=== PATIENT | male | born 1980 | race Caucasian/White ===

== ENCOUNTER 2016-12-16 17:31 | Inpatient (IN) | payer OTHER ==
[~2016-12-16] VITALS: Ht 182.9 cm; Wt 81.6 kg
--- NOTE | ~2016-12-16 | EKG ---
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
[~2016-12-16 17:31] MED LIST: ALPRAZOLAM; BACTRIM DS TAB1 EACH PO; CIPROFLOXACIN500 M1 PO; DESYREL150 MG PO; FLOMAX0.4 MG PO; HYDROXYZINE HCL25 M2 PO; LITHATE20 MG PO; NORCO 5-325 TA1 EACH PO; VICODIN; ZYPREXA5 MG PO
[2016-12-16 17:35] VITALS: BP 129/94
[2016-12-16 18:03] LABS: HEMATOCRIT 56.2 % (42.0-52.0); HEMOGLOBIN 19.4 gm/dL (14.0-18.0); MCH 28.4 pg (26.0-34.0); MCHC 34.5 g/dL (28.0-37.0); MCV 82.3 fL (80.0-100.0); PLATELET COUNT 342 thou/uL (150-400); RBC 6.82 mil/uL (4.50-6.00); WBC 18.6 thou/uL (4.0-11.0)
[2016-12-16 18:04] LABS: MANUAL DIFF YES
[2016-12-16 18:08] LABS: CALCIUM 9.5 mg/dL (8.5-10.1); CREATININE 0.8 mg/dL (0.7-1.3); POTASSIUM 4.2 mmol/L (3.5-5.1)
[2016-12-16 18:14] LABS: DIRECT BILIRUBIN 0.2 mg/dL (<0.1-0.3); TOTAL BILIRUBIN 1.3 mg/dL (<0.1-1.0); TOTAL PROTEIN 8.8 g/dL (6.4-8.2)
[2016-12-16 18:33] LABS: TOTAL CELL COUNT 100
[2016-12-16 18:34] LABS: ABSOLUTE NEUTROPHILS 15.4 thou/uL (1.4-8.2)
[2016-12-16] MEDS ORDERED: ZYPREXA5 MG PO (19:17)
[2016-12-16] MEDS ORDERED: DEPAKOTE ER500 MG PO (19:17)
[2016-12-17 03:52] VITALS: BP 108/72
[2016-12-17 05:04] LABS: HEMATOCRIT 46.2 % (42.0-52.0); MCH 28.1 pg (26.0-34.0); MCHC 33.8 g/dL (28.0-37.0); MCV 83.3 fL (80.0-100.0); RBC 5.55 mil/uL (4.50-6.00); RDW 14.1 % (10.5-14.5)
[2016-12-17 05:05] LABS: HEMOGLOBIN 15.6 gm/dL (14.0-18.0)
[2016-12-17 05:20] LABS: CALCIUM 8.2 mg/dL (8.5-10.1); CREATININE 0.6 mg/dL (0.7-1.3); POTASSIUM 3.6 mmol/L (3.5-5.1); TOTAL PROTEIN 6.8 g/dL (6.4-8.2)
[2016-12-17 15:50] VITALS: BP 120/67
[2016-12-17 19:24] VITALS: BP 100/68
[2016-12-18 04:26] VITALS: BP 98/68
[2016-12-18 05:32] LABS: ABSOLUTE NEUTROPHILS 4.4 thou/uL (1.4-8.2); BASOPHILS 0.4 % (0.0-2.0); EOSINOPHILS 2.9 % (0.0-3.0); HEMATOCRIT 42.6 % (42.0-52.0); HEMOGLOBIN 14.5 gm/dL (14.0-18.0); LYMPHOCYTES 39.1 % (24.0-44.0); MCH 28.3 pg (26.0-34.0); MCV 83.1 fL (80.0-100.0); MONOCYTES 6.4 % (1.0-8.0); PLATELET COUNT 289 thou/uL (150-400); POLYS 51.2 % (36.0-66.0); RBC 5.12 mil/uL (4.50-6.00); WBC 8.6 thou/uL (4.0-11.0)
[2016-12-18 05:35] LABS: MANUAL DIFF NO
[2016-12-18 05:42] LABS: CALCIUM 8.4 mg/dL (8.5-10.1); CREATININE 0.7 mg/dL (0.7-1.3); POTASSIUM 4.2 mmol/L (3.5-5.1)
[2016-12-18 11:09] VITALS: BP 103/57
[2016-12-18 11:52] VITALS: BP 122/64
[2016-12-18 15:31] VITALS: BP 106/64
[2016-12-18 21:00] VITALS: BP 108/68
[2016-12-19 04:12] VITALS: BP 147/109
[2016-12-19 07:47] VITALS: BP 144/100
[2016-12-19 09:29] LABS: ABSOLUTE NEUTROPHILS 6.9 thou/uL (1.4-8.2); BASOPHILS 0.5 % (0.0-2.0); EOSINOPHILS 1.9 % (0.0-3.0); HEMATOCRIT 42.8 % (42.0-52.0); HEMOGLOBIN 14.9 gm/dL (14.0-18.0); LYMPHOCYTES 24.6 % (24.0-44.0); MCH 28.7 pg (26.0-34.0); MCHC 34.8 g/dL (28.0-37.0); MCV 82.5 fL (80.0-100.0); MONOCYTES 6.2 % (1.0-8.0); PLATELET COUNT 309 thou/uL (150-400); POLYS 66.8 % (36.0-66.0); RBC 5.18 mil/uL (4.50-6.00); RDW 13.7 % (10.5-14.5); WBC 10.3 thou/uL (4.0-11.0)
[2016-12-19 09:35] LABS: MANUAL DIFF NO
[2016-12-19 09:45] LABS: ALBUMIN 3.4 g/dL (3.4-5.0); CALCIUM 8.7 mg/dL (8.5-10.1); CREATININE 0.8 mg/dL (0.7-1.3); POTASSIUM 3.7 mmol/L (3.5-5.1); TOTAL BILIRUBIN 0.4 mg/dL (<0.1-1.0); TOTAL PROTEIN 7.1 g/dL (6.4-8.2)
[2016-12-19 14:07] VITALS: BP 144/100
[2016-12-19] MEDS ORDERED: MIRALAX17 GM PO (14:07)
== END 2016-12-19 14:37 | disposition home or self-care (01) | DRG 390 ==
LOC: ER 17:31 → EROBS 19:54 → 4N 19:54 → 3N 12-18 19:56 → ENTRNSPT 12-19 14:22 → EDTRNSPTSTS 12-19 14:33 → 3N 12-19 14:37
PROVIDERS: Family Medicine; Nurse Practitioner; Nurse Practitioner Family
DX: K56.7 Ileus, unspecified (principal); F31.9 Bipolar disorder, unspecified; F90.9 Attention-deficit hyperactivity disorder, unspecified type; F20.9 Schizophrenia, unspecified; F17.210 Nicotine dependence, cigarettes, uncomplicated; R56.9 Unspecified convulsions; Z79.899 Other long term (current) drug therapy; Z90.49 Acquired absence of other specified parts of digestive tract
CPT/HCPCS: 10091; 10795

== ENCOUNTER 2016-12-24 20:31 | Inpatient (IN) | payer OTHER ==
[~2016-12-24] VITALS: Ht 180.3 cm; Wt 80.2 kg
--- NOTE | ~2016-12-24 | P ---
[facility] [place] [address] PROCEDURE REPORT Name: SAMIR GALINDO Room #: 448-P [facility] IN .R.#: [id number] Admission: 12/24/16 Attend Phys: Girish Ramon MD Discharge: 12/28/16 Date of : 80 Report #: [id number] THIS REPORT FOR: //name// CC: RINA physician/PCP Girish Ramon INPATIENT COLONOSCOPY REPORT BRIEF HISTORY: The patient is a 36-year-old male with recurrent abdominal pain and bouts of diarrhea. PREOPERATIVE DIAGNOSES: Abdominal pain and diarrhea. POSTOPERATIVE DIAGNOSES: Incomplete colonoscopy secondary to inadequate prep. MEDICATIONS: Deep sedation with propofol per anesthesia. SPECIMEN: None. ESTIMATED BLOOD LOSS: None. PROCEDURE: Aborted colonoscopy secondary to inadequate prep. FINDINGS: Prior to propofol sedation, procedure of colonoscopy discussed with the patient as well as potential risks and its complications. He indicates he understands and desires to proceed. DESCRIPTION OF PROCEDURE: With the patient in left lateral decubitus position, digital examination was completed which revealed no abnormalities. Subsequently, the Xecced video colonoscope was introduced into the rectum, advanced under direct vision. As we advanced the scope into the proximal rectum solid stool was encountered. We work around the solid stool, but unfortunately all the mucosa was coated with a thick layer of liquidy stool and large pieces of solid stools were encountered. It was felt that the prep was inadequate. We cannot accomplish a good exam with inadequate prep. Therefore, the scope was withdrawn. The patient tolerated the procedure well. DISPOSITION: The patient with above-mentioned symptoms. Unable to complete colonoscopy due to inadequate prep. We will continue to prep the patient and try again tomorrow. By: [id number] Roosevelt London MD /nt
--- NOTE | ~2016-12-24 | HC ---
[facility] [place] [address] CONSULTATION Name: SAMIR GALINDO JR Room #: 215-P ADM IN M.R.#: [id number] Admission: 12/24/16 Attend Phys: Girish Ramon MD Discharge: Date of : 80 Report #: [id number] THIS REPORT FOR: //name// CC: RINA physician/PCP Girish Ramon DATE OF SERVICE: 12/24/2016 REFERRING PROVIDER: Girish Ramon M.D. REASON FOR CONSULTATION: Abdominal pain. HISTORY OF PRESENT ILLNESS: The patient is a 36-year-old male seen in the Emergency Room with complaints of abdominal pain, vomiting, chills and nausea. The patient also complains of his breath smelling like rotten eggs when belching. He states that he was admitted for similar symptoms slightly greater than a week ago with placement of an NG tube and a diagnosis of a partial bowel obstruction. The patient does state he cannot remember where that admission took place, however. Nonetheless, the patient states he was feeling better and was discharged home, and now his pain has returned in a severe fashion and presents for evaluation. Workup just completed in the Emergency Room in the form of laboratories and a CT scan of the abdomen and pelvis were obtained. The patient's labs showed a mild leukocytosis with a white blood cell count of 14.[address] scan showed dilated fluid-filled loops of jejunum and ileum with mild thickening concerning for infectious enteritis or inflammatory bowel disease. As such, the patient is being admitted by the hospitalist service and I am asked to evaluate from a surgical standpoint. PAST MEDICAL HISTORY: Chronic kidney disease stage 1, hypokalemia, intermittent small bowel obstructions, prior kidney stones, abdominal pain, nausea and vomiting, prior appendectomy and cholecystectomy, bipolar disorder. HOME MEDICATIONS: Depakote, trazodone and Zyprexa. ALLERGIES: No known drug allergies. FAMILY HISTORY: Reviewed and noncontributory. SOCIAL HISTORY: The patient smokes 1 pack of cigarettes daily and has done so for several years, also uses marijuana daily. States he does not drink alcohol. REVIEW OF SYSTEMS: GENERAL: The patient denies nocturnal fevers or chills. HEENT: No change in vision, change in hearing. NECK: No swelling or difficulty swallowing. HEART: No chest pain, palpitations. [address] [address] CONSULTATION Name: SAMIR GALINDO Room #: 215-P [facility] IN [facility].#: [id number] Admission: 12/24/16 Attend Phys: Girish Ramon MD Discharge: Date of : 80 Report #: [id number] LUNGS: No cough or shortness of breath. ABDOMEN: Abdominal pain, nausea, vomiting. GENITOURINARY: No dysuria or hematuria. ENDOCRINE: No polyuria, polydipsia. HEMATOLOGIC: No history of bleeding or easy bruising. EXTREMITIES: No history of weakness or limited range of motion. NEUROLOGIC: No history of syncope or near syncopal episodes. SKIN AND INTEGUMENT: No history of abnormal lesions or moles. PSYCHIATRIC: Positive history of bipolar disorder. SKIN AND INTEGUMENT: No history of abnormal lesions or moles. LABORATORY AND X-RAY DATA: CBC shows white blood cell count of 14.5 thousand, hemoglobin 16.1, platelets 293,000. Creatinine 0.7. Liver function enzymes are normal. Lipase is normal. Urinalysis is negative. Three-view the abdomen shows dilated small bowel loops. CT scan of the abdomen and pelvis as per HPI shows multiple dilated fluid-filled loops of jejunum and ileum with mild wall thickening concerning for nonspecific infectious enteritis versus inflammatory bowel disease such as possible Crohn's. ASSESSMENT AND PLAN: A 36-year-old male with abdominal pain, nausea and vomiting and a workup consistent with either infectious enteritis, peptic ulcer disease or inflammatory bowel disease. At this time, the patient has been admitted by the hospitalist service and we will continue IV fluid rehydration with n.p.o. status at this time. I would like gastroenterology to evaluate as it may be necessary to perform either an EGD or colonoscopy to further identify the etiology of his symptoms. At this time, I see no indication for an emergent surgical intervention. I sincerely appreciate this consult. I will follow closely and leave any further recommendations in the patient's chart as appropriate. <ELECTRONICALLY SIGNED> By: Geraldine James MD, FACS 12/26/16 0914 1523 2305 Geraldine James MD, FACS /nt
--- NOTE | ~2016-12-24 | P ---
[facility] [place] [address] PROCEDURE REPORT Name: SAMIR GALINDO JR Room #: 448-P ADM IN M.R.#: [id number] Admission: 12/24/16 Attend Phys: Girish Ramon MD Discharge: Date of : 80 Report #: [id number] THIS REPORT FOR: //name// CC: Renetta Caldera DO [facility] physician/PCP Otis Peoples DO Girish James MD DATE OF SERVICE: 12/26/2016 PATIENT OF: Girish Ramon M.D. INDICATION FOR PROCEDURE: This patient has been having abdominal pain, nausea, vomiting and diarrhea off and on for the last 3 years. His abdominal x-ray showed dilation of multiple small bowel loops with air-fluid levels suggesting an ileus or possibly a bowel obstruction. EGD is being performed today to evaluate the nausea and vomiting and epigastric pain further. DESCRIPTION OF PROCEDURE: Informed consent for this procedure was obtained prior to the administration of any medication. The risks of the procedure, which include bleeding, perforation, infection, complications of sedation and the possibility I could miss something have been explained to the patient, and he has indicated his consent by signing. Propofol was slowly titrated before and during this procedure for patient comfort by the Anesthesia service. The Visualtisingn upper videoscope was introduced through the upper esophageal sphincter and advanced under direct visualization to the descending duodenum. Findings are noted on withdrawal of the scope. The duodenal mucosa appears normal throughout its entirety. There is some retained solid food in the duodenal bulb. Pylorus, normal mucosa. Antrum, there is some mild erythema of the antrum noted. Biopsies are obtained x 2 for histopathology. Body, normal mucosa. Cardia and fundus, normal mucosa. Retroflexed view did not reveal any further abnormalities. Scope was withdrawn to the esophagus. The Z-line is appropriately located but is quite jagged. There are some ectopic mucosal elements extending above the Z line, and there are some islands of ectopic-appearing mucosa present above the Z line as well. Biopsies were obtained x 3 for histopathology from these little points of ectopic mucosa. Good hemostasis was noted after all of the biopsies. The esophagus proximal to the ectopic-appearing mucosa appears normal throughout its entirety. The scope was withdrawn. The patient went to the recovery area in stable condition. He tolerated the procedure well. IMPRESSION: 1. Retained food in the stomach and the duodenal bulb. 2. Normal-appearing duodenum, biopsies from the second portion of the duodenum [address] [address] PROCEDURE REPORT Name: SAMIR GALINDO Room #: 448-P [facility] IN .R.#: [id number] Admission: 12/24/16 Attend Phys: Girish Ramon MD Discharge: Date of : 80 Report #: [id number] were obtained to rule out celiac sprue. 3. Mild antral erythema. 4. 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 Biopsies pending. These tongues of ectopic mucosa are just millimeters thick, less than 5 mm thick, and one is quite long approximately 3 cm in length. The islands of ectopic mucosa are trivial, only millimeters in size. Biopsies are pending. RECOMMENDATIONS: 1. To await the biopsy results. Consider gastric emptying study with retained solid food present in the duodenal bulb and the stomach. 2. Continue proton pump inhibitors. 3. Repeat acute abdominal series in the morning. Surgery is already following this patient for a small-bowel obstruction. Thank you very much once again for allowing me to participate in his care. <ELECTRONICALLY SIGNED> By: Renetta Caldera DO 12/27/16 1742 1436 0714 Renetta Caldera DO /nt
--- NOTE | ~2016-12-24 | S ---
[facility] [place] [address] SURGICAL PATH RPT PROCEDURE Name: SAMIR GALINDO JR Room #: 448-P ADM IN M.R.#: [id number] Admission: 12/24/16 Date of : 80 Discharge: Report #: [id number] Path Case #: [id number] PATHOLOGY REPORT COLLECTION DATE: 12/26/2016 RECEIVED DATE: 12/27/2016 SUBMITTING PHYS: Dr. Renetta Caldera OTHER PHYS: Dr. Girish Montez SPECIMEN(S) RECEIVED: A.Bx of small bowel B.Bx of gastric C.Bx of distal esophagus * * * * * * * * * * * * FINAL DIAGNOSIS: A. Small bowel, biopsy: - Unremarkable duodenal mucosa. B. Stomach, biopsy: - Mild chronic inactive gastritis. - An H. pylori immunostain is negative (Block B1; appropriately reactive control). C. Esophagus, distal, biopsy: - Squamocolumnar junctional mucosa, chronically inflamed, focal acute inflammation. - Negative for intestinal metaplasia. PATHOLOGIST: Tani Paz M.D. REPORT ELECTRONICALLY SIGNED BY: Tani Paz M.D. DATE/TIME: 12/28/2016 13:20 * * * * * * * * * * * * GROSS PATHOLOGY: A. Received in formalin labeled "Samir Shonna Giordano, BX of small bowel r/o celiac," are 2 segments of cadena soft tissue measuring 0.7 x 0.3 x 0.3 cm in aggregate dimensions and ranging from 0.3 to 0.4 cm in maximum dimension. The specimen is submitted entirely in cassette A1. B. Received in formalin labeled "Samir Galindo JEFFREY Giordano of gastric," are 3 segments of cadena soft tissue measuring 1.4 x 0.4 x 0.3 cm in aggregate dimensions and ranging from 0.2 to 0.5 cm in maximum dimension. The specimen is submitted entirely in cassette B1. C. Received in formalin labeled "Samir Ramirezangus Giordano BX of distal esophagus r/o Motta's," are 2 segments of cadena soft tissue measuring 0.9 x 0.4 x 0.3 cm in aggregate dimensions and ranging from 0.4 to 0.5 cm in maximum dimension. The specimen is submitted entirely in [address] [place] [address] SURGICAL PATH RPT PROCEDURE Name: SAMIR GALINDO Room #: 448-P [facility] IN .R.#: [id number] Admission: 12/24/16 Date of : 80 Discharge: Report #: [id number] Path Case #: [id number] cassette C1. (TSD; 12/27/2016) CLINICAL HISTORY: Abdominal pain INITIAL CPT CODE(S): A; 96743 B; 72476, 06662 C; 47791 Professional services performed by [facility] at [facility] [address] [place] [address] Technical services performed by [facility] at [address] [place] [address], [address], [place] [address]. [facility] [address] [place] [address] PHONE: [phone] DIRECTOR: Jermaine Allred M.D. * * * END OF REPORT * * *
[~2016-12-24 20:31] MED LIST changes: +DEPAKOTE ER500 MG PO; +MIRALAX17 GM PO
[2016-12-24 20:37] VITALS: BP 108/83
[2016-12-24] MEDS ORDERED: DEPAKOTE 250MG250 M1 PO (20:41)
[2016-12-24] MEDS ORDERED: ZYPREXA5 MG PO (20:42)
[2016-12-24] MEDS ORDERED: TRAZODONE 150150 M1 PO (20:42)
[2016-12-24 21:43] LABS: ABSOLUTE NEUTROPHILS 10.4 thou/uL (1.4-8.2); BASOPHILS 0.6 % (0.0-2.0); EOSINOPHILS 4.3 % (0.0-3.0); HEMATOCRIT 47.7 % (42.0-52.0); HEMOGLOBIN 16.1 gm/dL (14.0-18.0); LYMPHOCYTES 18.4 % (24.0-44.0); MCH 28.3 pg (26.0-34.0); MCHC 33.9 g/dL (28.0-37.0); MCV 83.6 fL (80.0-100.0); MONOCYTES 5.1 % (1.0-8.0); PLATELET COUNT 293 thou/uL (150-400); POLYS 71.6 % (36.0-66.0); RDW 14.4 % (10.5-14.5); WBC 14.5 thou/uL (4.0-11.0)
[2016-12-24 21:44] LABS: MANUAL DIFF NO
[2016-12-24 21:52] LABS: CALCIUM 8.5 mg/dL (8.5-10.1); CREATININE 0.7 mg/dL (0.7-1.3); POTASSIUM 3.9 mmol/L (3.5-5.1)
[2016-12-24 21:59] LABS: ALBUMIN 3.6 g/dL (3.4-5.0); TOTAL BILIRUBIN 0.5 mg/dL (<0.1-1.0); TOTAL PROTEIN 7.1 g/dL (6.4-8.2)
[2016-12-24 23:08] LABS: URINE BILIRUBIN NEGATIVE (Negative); URINE BLOOD NEGATIVE (Negative); URINE COLOR YELLOW; URINE GLUCOSE-RANDOM* NEGATIVE (Negative); URINE KETONES NEGATIVE (Negative); URINE LEUKOCYTES-REFLEX NEGATIVE (Negative); URINE PROTEIN (DIPSTICK) NEGATIVE (Negative); URINE UROBILINOGEN 0.2 E.U./dl (0.2-1.0)
[2016-12-24 23:59] VITALS: BP 111/62
[2016-12-25 00:09] VITALS: BP 124/77
[2016-12-25 03:50] VITALS: BP 124/74
[2016-12-25 07:30] VITALS: BP 97/57
[2016-12-25 11:38] VITALS: BP 108/51
[2016-12-25 15:22] VITALS: BP 97/59
[2016-12-25 20:08] VITALS: BP 121/87
[2016-12-26 03:49] VITALS: BP 90/56
[2016-12-26 04:16] LABS: HEMATOCRIT 40.9 % (42.0-52.0); MCHC 33.3 g/dL (28.0-37.0); MCV 83.9 fL (80.0-100.0); RBC 4.87 mil/uL (4.50-6.00); WBC 7.4 thou/uL (4.0-11.0)
[2016-12-26 04:18] LABS: HEMOGLOBIN 13.6 gm/dL (14.0-18.0)
[2016-12-26 04:31] LABS: CREATININE 0.6 mg/dL (0.7-1.3); POTASSIUM 3.8 mmol/L (3.5-5.1)
[2016-12-26 11:42] VITALS: BP 99/66
[2016-12-26 15:38] VITALS: BP 97/65
[2016-12-26 19:35] VITALS: BP 117/76
[2016-12-27 03:42] LABS: HEMATOCRIT 40.3 % (42.0-52.0); HEMOGLOBIN 13.5 gm/dL (14.0-18.0); MCH 28.2 pg (26.0-34.0); MCHC 33.6 g/dL (28.0-37.0); RBC 4.8 mil/uL (4.50-6.00); WBC 9.4 thou/uL (4.0-11.0)
[2016-12-27 03:48] LABS: CALCIUM 8.2 mg/dL (8.5-10.1); CREATININE 0.7 mg/dL (0.7-1.3); POTASSIUM 3.3 mmol/L (3.5-5.1)
[2016-12-27 03:52] VITALS: BP 105/60
[2016-12-27 08:15] VITALS: BP 113/79
[2016-12-27 11:24] VITALS: BP 139/96
[2016-12-27 15:33] VITALS: BP 144/90
[2016-12-27 20:23] VITALS: BP 149/96
[2016-12-28 04:44] VITALS: BP 130/89
[2016-12-28 04:57] LABS: HEMATOCRIT 41.5 % (42.0-52.0); MCH 28.1 pg (26.0-34.0); MCHC 33.7 g/dL (28.0-37.0); MCV 83.2 fL (80.0-100.0); RBC 4.99 mil/uL (4.50-6.00); RDW 14.1 % (10.5-14.5); WBC 9.4 thou/uL (4.0-11.0)
[2016-12-28 05:09] LABS: CALCIUM 8.5 mg/dL (8.5-10.1); CREATININE 0.7 mg/dL (0.7-1.3); POTASSIUM 3.9 mmol/L (3.5-5.1)
[2016-12-28 07:56] VITALS: BP 145/104
[2016-12-28] MEDS ORDERED: REGLAN 5 MG TAB5 MG PO (16:06)
[2016-12-28] MEDS ORDERED: PERCOCET PO (16:06)
[2016-12-28 16:18] VITALS: BP 145/104
[2016-12-28 17:49] VITALS: BP 145/104
== END 2016-12-28 17:50 | disposition home or self-care (01) | DRG 392 ==
LOC: ER 20:31 → 2N 23:42 → EROBS 23:42 → 2N 23:42 → 4S 12-27 11:21
PROVIDERS: Emergency Medicine; Hospitalist
DX: K31.84 Gastroparesis (principal); K56.60 Unspecified intestinal obstruction; K56.7 Ileus, unspecified; E87.6 Hypokalemia; F17.210 Nicotine dependence, cigarettes, uncomplicated; N18.1 Chronic kidney disease, stage 1; F31.9 Bipolar disorder, unspecified; F90.9 Attention-deficit hyperactivity disorder, unspecified type; F20.9 Schizophrenia, unspecified; G40.909 Epilepsy, unspecified, not intractable, without status epilepticus; Z79.899 Other long term (current) drug therapy; Z90.49 Acquired absence of other specified parts of digestive tract; Z87.442 Personal history of urinary calculi
CPT/HCPCS: 10102; 10797; 62110; 62900; 70005

== ENCOUNTER 2017-01-03 00:26 | Emergency (ER) | payer OTHER ==
[~2017-01-03] VITALS: Ht 180.3 cm; Wt 81.7 kg
[~2017-01-03 00:26] MED LIST changes: +DEPAKOTE 250MG250 M1 PO; +PERCOCET PO; +REGLAN 5 MG TAB5 MG PO; +TRAZODONE 150150 M1 PO
[2017-01-03 00:59] LABS: ABSOLUTE NEUTROPHILS 7.3 thou/uL (1.4-8.2); EOSINOPHILS 12.1 % (0.0-3.0); HEMATOCRIT 42.2 % (42.0-52.0); HEMOGLOBIN 14.5 gm/dL (14.0-18.0); LYMPHOCYTES 21.1 % (24.0-44.0); MCH 28.4 pg (26.0-34.0); MCHC 34.3 g/dL (28.0-37.0); MCV 82.7 fL (80.0-100.0); MONOCYTES 6.6 % (1.0-8.0); PLATELET COUNT 311 thou/uL (150-400); POLYS 59.2 % (36.0-66.0); RBC 5.11 mil/uL (4.50-6.00); WBC 12.3 thou/uL (4.0-11.0)
[2017-01-03 01:00] LABS: MANUAL DIFF NO
[2017-01-03 01:06] LABS: CALCIUM 8.6 mg/dL (8.5-10.1); CREATININE 0.9 mg/dL (0.7-1.3); POTASSIUM 3.4 mmol/L (3.5-5.1)
[2017-01-03 01:16] LABS: ALBUMIN 3.7 g/dL (3.4-5.0); TOTAL BILIRUBIN 0.8 mg/dL (<0.1-1.0); TOTAL PROTEIN 7.5 g/dL (6.4-8.2)
[2017-01-03 01:50] VITALS: BP 118/73
== END 2017-01-03 02:26 | disposition home or self-care (01) ==
LOC: ER 00:26
PROVIDERS: Emergency Medicine
DX: R10.9 Unspecified abdominal pain (principal); R11.0 Nausea; F17.210 Nicotine dependence, cigarettes, uncomplicated; F10.99 Alcohol use, unspecified with unspecified alcohol-induced disorder; Z90.49 Acquired absence of other specified parts of digestive tract; F31.9 Bipolar disorder, unspecified; F90.9 Attention-deficit hyperactivity disorder, unspecified type; F20.9 Schizophrenia, unspecified; G40.909 Epilepsy, unspecified, not intractable, without status epilepticus

== ENCOUNTER 2019-04-06 22:05 | Emergency (ER) | payer OTHER ==
[~2019-04-06] VITALS: Ht 180.3 cm; Wt 81.7 kg
[2019-04-06 23:10] LABS: ABSOLUTE NEUTROPHILS 5.6 thou/uL (1.4-8.2); BASOPHILS 0.6 % (0.0-2.0); EOSINOPHILS 1.7 % (0.0-3.0); HEMATOCRIT 50.2 % (42.0-52.0); HEMOGLOBIN 16.9 gm/dL (14.0-18.0); LYMPHOCYTES 28.8 % (24.0-44.0); MCH 28.7 pg (26.0-34.0); MCHC 33.8 g/dL (28.0-37.0); MCV 84.9 fL (80.0-100.0); MONOCYTES 7.4 % (1.0-8.0); PLATELET COUNT 318 thou/uL (150-400); POLYS 61.5 % (36.0-66.0); RBC 5.91 mil/uL (4.50-6.00); RDW 13.5 % (10.5-14.5)
[2019-04-06 23:14] LABS: CALCIUM 8.5 mg/dL (8.5-10.1); POTASSIUM 3.8 mmol/L (3.5-5.1)
[2019-04-06 23:20] LABS: ALBUMIN 3.8 g/dL (3.4-5.0); TOTAL BILIRUBIN 0.7 mg/dL (<0.1-1.0); TOTAL PROTEIN 7.9 g/dL (6.4-8.2)
[2019-04-06 23:25] LABS: URINE BILIRUBIN 1+ (Negative); URINE BLOOD NEGATIVE (Negative); URINE CLARITY CLEAR; URINE COLOR YELLOW; URINE GLUCOSE-RANDOM* NEGATIVE (Negative); URINE KETONES NEGATIVE (Negative); URINE LEUKOCYTES-REFLEX NEGATIVE (Negative); URINE NITRITE-REFLEX NEGATIVE (Negative); URINE PROTEIN (DIPSTICK) NEGATIVE (Negative); URINE SPECIFIC GRAVITY >= 1.030 (1.005-1.035)
[2019-04-07 00:37] VITALS: BP 139/106
[2019-04-07] MEDS ORDERED: BENTYL 20 MG TA20 M1 PO (00:45)
== END 2019-04-07 00:55 | disposition home or self-care (01) ==
LOC: ER 22:05
PROVIDERS: Physician Assistant
DX: R10.30 Lower abdominal pain, unspecified (principal); F90.9 Attention-deficit hyperactivity disorder, unspecified type; F31.9 Bipolar disorder, unspecified; F17.210 Nicotine dependence, cigarettes, uncomplicated; F20.9 Schizophrenia, unspecified; Z90.49 Acquired absence of other specified parts of digestive tract; Z87.19 Personal history of other diseases of the digestive system

== ENCOUNTER 2019-09-16 07:40 | Emergency (ER) | payer OTHER ==
[~2019-09-16] VITALS: Ht 180.3 cm; Wt 81.7 kg
[~2019-09-16 07:40] MED LIST changes: +BENTYL 20 MG TA20 M1 PO
[2019-09-16 08:35] LABS: ABSOLUTE NEUTROPHILS 9.2 thou/uL (1.4-8.2); BASOPHILS 0.5 % (0.0-2.0); EOSINOPHILS 0.5 % (0.0-3.0); LYMPHOCYTES 17.3 % (24.0-44.0); MCH 28.9 pg (26.0-34.0); MCHC 34.7 g/dL (28.0-37.0); MCV 83.5 fL (80.0-100.0); MONOCYTES 4.4 % (1.0-8.0); PLATELET COUNT 303 thou/uL (150-400); POLYS 77.3 % (36.0-66.0); RBC 5.87 mil/uL (4.50-6.00); RDW 14.1 % (10.5-14.5); WBC 11.9 thou/uL (4.0-11.0)
[2019-09-16 08:43] LABS: ANION GAP 8 mmol/L (7-16); BUN 12 mg/dL (7-18); CALCIUM 8.5 mg/dL (8.5-10.1); CHLORIDE 100 mmol/L (98-107); CO2 27 mmol/L (21-32); CREATININE 0.8 mg/dL (0.7-1.3); GLUCOSE 119 mg/dL (74-106); POTASSIUM 3.9 mmol/L (3.5-5.1); SODIUM 135 mmol/L (136-145)
[2019-09-16 08:47] LABS: APTT 25.9 Seconds (24.5-32.8); PROTIME 9.7 Seconds (9.3-11.4)
[2019-09-16 08:49] LABS: ALBUMIN 3.6 g/dL (3.4-5.0); SALICYLATE < 2.8 mg/dL (2.8-20.0); SGOT 27 U/L (15-37); SGPT 54 U/L (30-65); TOTAL BILIRUBIN 0.8 mg/dL (0.2-1.0); TOTAL PROTEIN 7.2 g/dL (6.4-8.2)
[2019-09-16] MEDS ORDERED: TRAMADOL 50 MG50 MG PO (09:16)
[2019-09-16] MEDS ORDERED: NAPROSYN500 MG PO (09:16)
[2019-09-16 09:21] LABS: URINE BILIRUBIN NEGATIVE (Negative); URINE BLOOD NEGATIVE (Negative); URINE CLARITY CLEAR; URINE COLOR YELLOW; URINE GLUCOSE-RANDOM* NEGATIVE (Negative); URINE KETONES NEGATIVE (Negative); URINE LEUKOCYTES-REFLEX NEGATIVE (Negative); URINE NITRITE-REFLEX NEGATIVE (Negative); URINE PROTEIN (DIPSTICK) NEGATIVE (Negative)
[2019-09-16 09:25] VITALS: BP 141/95
[2019-09-16 09:26] LABS: AMP/METHAMP POSITIVE (Negative); BARBITURATES Negative (Negative); BENZODIAZEPINES Negative (Negative); COCAINE Negative (Negative); METHADONE Negative (Negative); OPIATES Negative (Negative); PCP Negative (Negative)
== END 2019-09-16 09:28 | disposition home or self-care (01) ==
LOC: ER 07:40
PROVIDERS: Emergency Medicine
DX: S01.01XA Laceration without foreign body of scalp, initial encounter (principal); M54.2 Cervicalgia; G40.909 Epilepsy, unspecified, not intractable, without status epilepticus; F20.9 Schizophrenia, unspecified; F31.9 Bipolar disorder, unspecified; F90.9 Attention-deficit hyperactivity disorder, unspecified type; F17.210 Nicotine dependence, cigarettes, uncomplicated; Z90.49 Acquired absence of other specified parts of digestive tract; Z79.899 Other long term (current) drug therapy; W22.8XXA Striking against or struck by other objects, initial encounter; Y93.89 Activity, other specified; Y92.89 Other specified places as the place of occurrence of the external cause; Y99.8 Other external cause status

== ENCOUNTER 2019-10-18 20:07 | Emergency (ER) | payer OTHER ==
[~2019-10-18] VITALS: Ht 180.3 cm; Wt 79.4 kg
[~2019-10-18 20:07] MED LIST changes: +NAPROSYN500 MG PO; +TRAMADOL 50 MG50 MG PO
[2019-10-18] MEDS ORDERED: OLANZAPINE15 MG PO (20:29)
[2019-10-18 20:53] LABS: ABSOLUTE NEUTROPHILS 7.4 thou/uL (1.4-8.2); BASOPHILS 0.2 % (0.0-2.0); EOSINOPHILS 2.1 % (0.0-3.0); HEMATOCRIT 48.1 % (42.0-52.0); HEMOGLOBIN 16.6 gm/dL (14.0-18.0); LYMPHOCYTES 25.1 % (24.0-44.0); MCH 29.4 pg (26.0-34.0); MCHC 34.5 g/dL (28.0-37.0); MCV 85.1 fL (80.0-100.0); MONOCYTES 6.3 % (1.0-8.0); PLATELET COUNT 307 thou/uL (150-400); POLYS 66.3 % (36.0-66.0); RBC 5.65 mil/uL (4.50-6.00); RDW 14.1 % (10.5-14.5); WBC 11.1 thou/uL (4.0-11.0)
[2019-10-18 21:02] LABS: CALCIUM 8.8 mg/dL (8.5-10.1); CREATININE 0.8 mg/dL (0.7-1.3); POTASSIUM 3.8 mmol/L (3.5-5.1)
[2019-10-18 21:10] LABS: ALBUMIN 3.2 g/dL (3.4-5.0); TOTAL BILIRUBIN 0.3 mg/dL (0.2-1.0); TOTAL PROTEIN 7.3 g/dL (6.4-8.2)
[2019-10-18 23:14] LABS: URINE BILIRUBIN 1+ (Negative); URINE BLOOD NEGATIVE (Negative); URINE CLARITY CLEAR; URINE COLOR YELLOW; URINE GLUCOSE-RANDOM* NEGATIVE (Negative); URINE KETONES TRACE (Negative); URINE LEUKOCYTES-REFLEX NEGATIVE (Negative); URINE NITRITE-REFLEX NEGATIVE (Negative); URINE PROTEIN (DIPSTICK) NEGATIVE (Negative); URINE SPECIFIC GRAVITY >= 1.030 (1.005-1.035)
[2019-10-18 23:20] LABS: ICTOTEST (BILI CONFIRMATORY) Positive (Negative)
[2019-10-19] MEDS ORDERED: KRISTALOSE20 GM PO (00:12)
[2019-10-19 00:15] VITALS: BP 101/72
--- NOTE | 2019-10-19 08:28 | EKG ---
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1980 Requested By: Gen Hernandez Order Number: [id number] MD: Dane Goldstein Measurements Intervals [place] Rate: 112 P: 60 [place]: 124 QRS: 65 QRSD: 84 T: 42 QT: 303 QTc: 414 Interpretive Statements Sinus tachycardia Probable left atrial enlargement Compared to ECG 12/16/2016 17:51:59 No significant change was found Electronically Signed On 10-19-2019 8:28:44 CDT by Dane Goldstein [email or web address] <ELECTRONICALLY SIGNED> By: Dane Goldstein MD, [facility] 10/19/19 0828 42 42 Dane Goldstein MD, [facility] /EPI
== END 2019-10-19 00:20 | disposition home or self-care (01) ==
LOC: ER 20:07
PROVIDERS: Emergency Medicine
DX: R53.1 Weakness (principal); R41.0 Disorientation, unspecified; F17.210 Nicotine dependence, cigarettes, uncomplicated; Z90.49 Acquired absence of other specified parts of digestive tract; Z79.899 Other long term (current) drug therapy

== ENCOUNTER 2019-10-24 03:51 | Emergency (ER) | payer OTHER ==
[~2019-10-24] VITALS: Ht 180.3 cm; Wt 79.4 kg
[~2019-10-24 03:51] MED LIST changes: +KRISTALOSE20 GM PO; +OLANZAPINE15 MG PO
[2019-10-24] MEDS ORDERED: ULTRAM 50MG TAB50 MG PO (05:53)
[2019-10-24] MEDS ORDERED: LACTULOSE10 GM/15 M PO (06:43)
[2019-10-24 07:45] VITALS: BP 143/96
== END 2019-10-24 07:49 | disposition home or self-care (01) ==
LOC: ER 03:51
DX: S92.515D Nondisplaced fracture of proximal phalanx of left lesser toe(s), subsequent encounter for fracture with routine healing (principal); S91.312D Laceration without foreign body, left foot, subsequent encounter; F17.210 Nicotine dependence, cigarettes, uncomplicated; Z90.49 Acquired absence of other specified parts of digestive tract; Z79.899 Other long term (current) drug therapy; X58.XXXD Exposure to other specified factors, subsequent encounter

== ENCOUNTER 2021-03-15 04:05 | Emergency (ER) | payer OTHER ==
[~2021-03-15 04:05] MED LIST changes: +LACTULOSE10 GM/15 M PO; +ULTRAM 50MG TAB50 MG PO
[2021-03-15] MEDS ORDERED: ZYPREXA 5 MG TAB5 M1 PO (04:14)
[2021-03-15] MEDS ORDERED: DOXYCYCLINE 10100 MG PO (05:29)
[2021-03-15] MEDS ORDERED: IBUPROFEN 800800 MG PO (05:29)
[2021-03-15] MEDS ORDERED: ZOFRAN ODT4 MG PO (05:29)
== END 2021-03-15 04:10 | disposition home or self-care (01) ==
LOC: ER 04:05
DX: Z20.822 Contact with and (suspected) exposure to COVID-19 (principal); Z53.21 Procedure and treatment not carried out due to patient leaving prior to being seen by health care provider

== ENCOUNTER 2021-03-15 04:09 | Emergency (ER) | payer OTHER ==
[~2021-03-15] VITALS: Ht 180.3 cm; Wt 81.7 kg
[2021-03-15] MEDS ORDERED: ZYPREXA 5 MG TAB5 M1 PO (04:14)
[2021-03-15] MEDS ORDERED: IBUPROFEN 800800 MG PO (05:29)
[2021-03-15] MEDS ORDERED: DOXYCYCLINE 10100 MG PO (05:29)
[2021-03-15] MEDS ORDERED: ZOFRAN ODT4 MG PO (05:29)
[2021-03-15 06:25] VITALS: BP 133/78
== END 2021-03-15 06:30 | disposition home or self-care (01) ==
LOC: ER 04:09
DX: J18.9 Pneumonia, unspecified organism (principal); Z20.822 Contact with and (suspected) exposure to COVID-19; R05.9 Cough, unspecified; F17.200 Nicotine dependence, unspecified, uncomplicated; F12.90 Cannabis use, unspecified, uncomplicated; Z79.899 Other long term (current) drug therapy

== ENCOUNTER 2021-03-23 21:01 | Emergency (ER) | payer OTHER ==
[~2021-03-23] VITALS: Ht 180.3 cm; Wt 81.7 kg
[~2021-03-23 21:01] MED LIST changes: +DOXYCYCLINE 10100 MG PO; +IBUPROFEN 800800 MG PO; +ZOFRAN ODT4 MG PO; +ZYPREXA 5 MG TAB5 M1 PO
[2021-03-23 23:04] LABS: ABSOLUTE NEUTROPHILS 14.2 thou/uL (1.4-8.2); BASOPHILS 0.6 % (0.0-2.0); EOSINOPHILS 0.7 % (0.0-3.0); HEMATOCRIT 45.6 % (42.0-52.0); HEMOGLOBIN 15.7 gm/dL (14.0-18.0); LYMPHOCYTES 11.8 % (24.0-44.0); MCH 28.3 pg (26.0-34.0); MCHC 34.4 g/dL (28.0-37.0); MCV 82.2 fL (80.0-100.0); PLATELET COUNT 250 thou/uL (150-400); POLYS 80.9 % (36.0-66.0); RBC 5.55 mil/uL (4.50-6.00); RDW 13.3 % (10.5-14.5); WBC 17.5 thou/uL (4.0-11.0)
[2021-03-23 23:17] LABS: CALCIUM 8.5 mg/dL (8.5-10.1); CREATININE 0.8 mg/dL (0.7-1.3); POTASSIUM 3.8 mmol/L (3.5-5.1)
[2021-03-23 23:27] LABS: ALBUMIN 3.5 g/dL (3.4-5.0); TOTAL BILIRUBIN 0.5 mg/dL (0.2-1.0); TOTAL PROTEIN 7.6 g/dL (6.4-8.2)
[2021-03-24 01:28] LABS: BE(vivo) -1.8 mmol/L (-2 to +3); HCO3 21.4 mmol/L (22.0-26.0); PCO2 32.7 mmHg (35.0-45.0); PO2 81.3 mmHg (80.0-100.0); pH 7.434 (7.360-7.450); sO2 96.4 % (92.0-98.0)
[2021-03-24 02:12] LABS: AMP/METHAMP POSITIVE (Negative); BARBITURATES Negative (Negative); BENZODIAZEPINES Negative (Negative); COCAINE Negative (Negative); METHADONE Negative (Negative); OPIATES Negative (Negative); PCP Negative (Negative)
[2021-03-24] MEDS ORDERED: PROAIR HFA8.5 GM INH (02:30)
[2021-03-24 02:31] VITALS: BP 119/71
--- NOTE | 2021-03-27 07:13 | EKG ---
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1980 Requested By: Reyes Greene Order Number: [id number] MD: Benedict Moore Measurements Intervals [place] Rate: 105 P: 36 [place]: 130 QRS: 59 QRSD: 83 T: 36 QT: 308 QTc: 408 Interpretive Statements Sinus tachycardia Probable left atrial enlargement Compared to ECG 10/18/2019 20:43:03 No significant changes Electronically Signed On 03-27-2021 7:13:07 [employer]UNCH COUNTER MANAGER by Benedict Moore [email or web address] <ELECTRONICALLY SIGNED> By: Benedict Moore MD, [facility] 03/27/21 0713 2124 23 Benedict Moore MD, FACC /EPI
== END 2021-03-24 03:01 | disposition home or self-care (01) ==
LOC: ER 21:01
PROVIDERS: Emergency Medicine; Physician Assistant
DX: R05.9 Cough, unspecified (principal); Z20.822 Contact with and (suspected) exposure to COVID-19; R06.02 Shortness of breath; D72.829 Elevated white blood cell count, unspecified; F15.10 Other stimulant abuse, uncomplicated; F17.210 Nicotine dependence, cigarettes, uncomplicated; F12.90 Cannabis use, unspecified, uncomplicated; Z79.899 Other long term (current) drug therapy; Z79.891 Long term (current) use of opiate analgesic; Z79.1 Long term (current) use of non-steroidal anti-inflammatories (NSAID)